=== PATIENT | male | born 1945 | race Caucasian/White ===

== ENCOUNTER 2023-03-03 10:38 | Outpatient (CLI) | payer MEDICARE, SELFPAY | END 2023-03-03 10:39 | disposition home or self-care (01) | PROVIDERS: PCP Family Medicine; Visit Provider Family Medicine | DX: I10 Essential (primary) hypertension (principal); E78.5 Hyperlipidemia, unspecified | CPT/HCPCS: 80048; 80061 ==

== ENCOUNTER 2023-06-14 10:09 | Emergency (ER) | payer MEDICARE, SELFPAY ==
[2023-06-14 10:16] VITALS: BP 156/87; PULSE 55; RESP 16; TEMP 35.8; O2SAT 96; BMI 33.5
--- NOTE | 2023-06-14 10:38 | ED_ITS ---
HPI - General Adult General Time Seen by Provider: 10:39 Date Seen: 06/14/23 Chief complaint: Fall/Minor Trauma Stated complaint: fell off a ladder,lower right back pain Time Seen by Provider: 06/14/23 10:18 Related Data Home Medications Medication Instructions Recorded Confirmed aspirin 81 mg tablet,delayed 81 mg PO DAILY 03/03/23 06/14/23 release nitroglycerin 0.4 mg sublingual 0.4 mg sublingual PRN 03/03/23 03/22/23 tablet Previous Rx's Medication Instructions Recorded atorvastatin 80 mg tablet 80 mg PO QHS #90 tabs 03/03/23 clopidogrel 75 mg tablet 75 mg PO DAILY #90 tabs 03/03/23 lisinopril 40 mg tablet 40 mg PO DAILY #90 tabs 03/03/23 metoprolol succinate 25 mg 25 mg PO QDAY #90 tabs 03/03/23 tablet,extended release 24 hr Allergies Allergy/AdvReac Type Severity Reaction Status Date / Time No Known Allergies Allergy Unknown Unknown Verified 06/14/23 10:16 PFSH PFS Surgical History Status post right knee surgery ?Z98.890 - Other specified postprocedural states (ICD-10) Status post excision of lipoma (01/30/14) ?Z98.890 - Other specified postprocedural states (ICD-10) ?Z86.018 - Personal history of other benign neoplasm (ICD-10) Status post coronary artery stent placement ?Z95.5 - Presence of coronary angioplasty implant and graft (ICD-10) Family History Other Diabetes Social History (Updated 03/08/23 @ 10:17 by Viji Goldberg ~ [facility]) Smoking Status: Former smoker What tobacco products do you use: cigarettes Smoking quit date/years: >15 years ago Do you use any of these nicotine containing products: None Second hand tobacco smoke exposure: No How often do you have a drink containing alcohol: never How often do you have six or more drinks on one occasion: Never AUDIT-C Alcohol total score: 0 Non-prescribed substance use: denies use Little interest or pleasure in doing things: nearly every day Feeling down, depressed, or hopeless: not at all service: Yes Exam Narrative: Exam Narrative: Const: Well-nourished, Well-developed, in mild distress Eyes: PERRL, no conjunctival injection, and symmetrical lids ENMT: Atraumatic external nose and ears. Moist mucous membranes. Neck: Symmetric, trachea midline, No thyromegaly. CVS: RRR, No murmurs or gallops. Peripheral pulses 2+ and equal in all extremities RESP: Unlabored respiratory effort. Clear to auscultation bilaterally. GI: Nontender/Nondistended, No rebound or guarding. MSK:Extremities w/o deformity, Normal Active ROM. No tenderness to palpation noted to midline spine or hips. No tenderness to palpation noted to rest the patient has joints. Skin: Warm, Dry. No rashes or lesions. Neuro: Normal Muscle tone, Cranial nerves 2-12 grossly intact, normal bqqt-[id number], normal myeous-rp-[id number], normal gait, normal strength 5/5 upper lower extremities bilaterally, normal sensation upper and lower extremities bilaterally, normal rapid alternating movements. Psych: Awake, Alert, & Oriented x3. Appropriate mood and affect. Const: Vital Signs, click to edit/add: Vital Signs - 24 hr 06/14/23 10:16 06/14/23 12:30 Temperature 96.4 F L 97.1 F L Pulse Rate [Pulse Oximeter] 55 L 65 Respiratory Rate 16 18 Blood Pressure [Ri ght Upper Arm] 156/87 H 151/87 H Pulse Oximetry 96 95 Oxygen Delivery Me thod Room Air Course Vital Signs Vital signs: Initial Vital Signs Temperature 96.4 F L 06/14/23 10:16 Temperature Source Temporal Artery Scan 06/14/23 10:16 Pulse Rate 55 L 06/14/23 10:16 Respiratory Rate 16 06/14/23 10:16 Blood Pressure 156/87 H 06/14/23 10:16 Blood Pressure Mean 110 H 06/14/23 10:16 Blood Pressure Position Sitting 06/14/23 10:16 Pulse Oximetry 96 06/14/23 10:16 Oxygen Delivery Method Room Air 06/14/23 10:16 Vital Signs Temperature 96.4 F L 06/14/23 10:16 Pulse Rate 55 L 06/14/23 10:16 Respiratory Rate 16 06/14/23 10:16 Blood Pressure 156/87 H 06/14/23 10:16 Pulse Oximetry 96 06/14/23 10:16 Oxygen Delivery Method Room Air 06/14/23 10:16 Temperature 97.1 F L 06/14/23 12:30 Pulse Rate 65 06/14/23 12:30 Respiratory Rate 18 06/14/23 12:30 Blood Pressure 151/87 H 06/14/23 12:30 Pulse Oximetry 95 06/14/23 12:30 Oxygen Delivery Method Room Air 06/14/23 10:16 Medical Decision Making MDM Narrative Medical decision making narrative: Patient is a 8-year-old male presenting was working for right hip pain after a fall. He fell about 4 ft from a ladder landing on dirt. This is he has pain with walking was at rest there is no pain to his right hip. Denies weakness, numbness, headache, vision changes. States he is having no neurological symptoms at this time despite that we will order head CT due to his age and the fall. X-ray of the right hip was also ordered. X-ray of her hip shows no acute abnormalities. She has not required any pain medication this time. CT results were called to me by the radiologist Dr. Sancho Chin. He states other appears to be a subarachnoid hemorrhage. This is likely traumatic considering the patient just fell. He has 0 neurological symptoms at this time as far as I can find but considering the concern for subarachnoid hemorrhage he is best to be transferred to a higher level of care that has Neuro surgery. Spoke to Dr. Caban of [place] [facility] accepted him for transfer to their emergency department. Patient is agreeable to this plan. Imaging Data CT head: Radiologist's impression: INDICATION: Fall. TECHNIQUE: CT head without contrast. COMPARISON: None. FINDINGS: CSF spaces: Hyperdensity in the interpeduncular cistern consistent with subarachnoid hemorrhage. Brain parenchyma and extra-axial spaces: The rosenberg-white differentiation is normal. No sign of mass, hemorrhage, or midline shift. No extra-axial fluid collection. Skull base and calvarium: The visualized paranasal sinuses and mastoid air cells demonstrate no acute or significant findings. The visualized orbits are grossly unremarkable. No skull fractures. IMPRESSION: Subarachnoid hemorrhage in the interpeduncular cistern. Subspecialty neurosurgical consultation and follow-up imaging are recommended. Discussed with Dr. Ramirez at 12:05 p.m. on 06/14/2023. Please note that all CT scans at this facility use dose modulation, iterative reconstruction, and/or weight-based dosing when appropriate to reduce radiation dose to as low as reasonably achievable. Dictated by Sancho Chin MD @ 06/14/2023 12:08:03 PM Hip x-ray : Radiologist's impression: Indication: Fall, pain Technique: Pelvis and right hip 3 views Comparison: None Findings: The femoral neck is intact. No fracture. No intrinsic lesion. Mild degenerative changes of both hip joints. The pubic rami are intact. Intact sacrum. Impression: No sign of acute injury. Dictated by Farhan Willett MD @ 06/14/2023 12:21:38 PM Critical Care Time Critical Care Time Critical Care Time: Yes Attestation: The patient required my highest level preparedness to intervene emergently and I personally spent this critical care time directly and personally managing the patient. This critical care time included: Obtaining a history; Examining the patient; Pulse oximetry; Ordering and reviewing of studies; Arranging urgent treatment with development of a management plan; Evaluation of patients response to treatment; Frequent reassessment discussions with other providers. This critical care time was performed to assess and manage the high probability of imminent life-threatening deterioration that could result in multiorgan failure. It was exclusive of separate billable procedures and treating other patients and teaching time. Total Critical Care Time in Minutes: 31 Discharge Plan Discharge Clinical Impression: Subarachnoid hemorrhage Strain of muscle of right hip Qualifiers: Encounter type: initial encounter Qualified Code(s): S76.011A - Strain of muscle, fascia and tendon of right hip, initial encounter Patient Disposition: Xfer Other Discharge Location: [facility] Condition: Stable Prescriptions: No Action aspirin 81 mg tablet,delayed release (DR/EC) 81 mg PO DAILY nitroglycerin 0.4 mg tablet, sublingual 0.4 mg sublingual PRN atorvastatin 80 mg tablet 80 mg PO QHS Qty: 90 3RF clopidogrel 75 mg tablet 75 mg PO DAILY Qty: 90 3RF lisinopril 40 mg tablet 40 mg PO DAILY Qty: 90 3RF metoprolol succinate 25 mg tablet extended release 24 hr 25 mg PO QDAY Qty: 90 3RF Stand Alone Forms: [facility], [facility] Info Instructions
--- NOTE | 2023-06-14 10:46 | CRLHL7_ITS ---
For Patients: As a result of the Cures Act, medical imaging exams and procedure reports are released immediately into your electronic medical record. You may view this report before your referring provider. If you have questions, please contact your health care provider. Indication: Fall, pain Technique: Pelvis and right hip 3 views Comparison: None Findings: The femoral neck is intact. No fracture. No intrinsic lesion. Mild degenerative changes of both hip joints. The pubic rami are intact. Intact sacrum. Impression: No sign of acute injury. Dictated by Farhan Willett MD @ 06/14/2023 12:21:38 PM (Electronically Signed)
--- NOTE | 2023-06-14 10:46 | CT_ITS ---
Final Report Patient: DIAZ POTTER Facility:?[facility] Patient ID:?[id number] Site Patient ID:?[id number]. Site :?[id number] Study:?CT Head w/o-06/14/2023 10:58:39 AM Ordering Physician:Rupesh Garcia Final Report: INDICATION: Fall. TECHNIQUE: CT head without contrast. COMPARISON: None. FINDINGS: CSF spaces: Hyperdensity in the interpeduncular cistern consistent with subarachnoid hemorrhage. Brain parenchyma and extra-axial spaces: The rosenberg-white differentiation is normal. No sign of mass, hemorrhage, or midline shift. No extra-axial fluid collection. Skull base and calvarium: The visualized paranasal sinuses and mastoid air cells demonstrate no acute or significant findings. The visualized orbits are grossly unremarkable. No skull fractures. IMPRESSION: Subarachnoid hemorrhage in the interpeduncular cistern. Subspecialty neurosurgical consultation and follow-up imaging are recommended. Discussed with Dr. Ramirez at 12:05 p.m. on 06/14/2023. Please note that all CT scans at this facility use dose modulation, iterative reconstruction, and/or weight-based dosing when appropriate to reduce radiation dose to as low as reasonably achievable. Dictated by Sancho Chin MD @ 06/14/2023 12:08:03 PM (Electronic Signature)
[2023-06-14 12:30] VITALS: BP 151/87; PULSE 65; RESP 18; TEMP 36.2; O2SAT 95
--- NOTE | 2023-06-14 12:35 | ED.NURSE ---
Report to [facility] for xfer to [facility].
--- NOTE | 2023-06-14 12:46 | ED.NURSE ---
Report to [facility] ED RN. Understands patient is en route to [facility] at this time.
== END 2023-06-14 12:37 | disposition other institution (70) ==
PROVIDERS: Emergency Provider Student in an Organized Health Care Education/Training Program; PCP Family Medicine
DX: S06.6XAA Traumatic subarachnoid hemorrhage with loss of consciousness status unknown, initial encounter (principal); W11.XXXA Fall on and from ladder, initial encounter
CPT/HCPCS: 70450; 73502; 99284; 99291

== ENCOUNTER 2023-06-14 12:30 | Outpatient (CLI) | payer MEDICARE, SELFPAY | END 2023-06-14 12:31 | disposition home or self-care (01) | LOC: AMB 06-26 04:32 | PROVIDERS: PCP Family Medicine; Visit Provider Student in an Organized Health Care Education/Training Program | DX: I60.9 Nontraumatic subarachnoid hemorrhage, unspecified (principal) | CPT/HCPCS: A0425; A0426 ==

== ENCOUNTER 2023-07-14 12:58 | Outpatient (CLI) | payer MEDICARE, SELFPAY ==
--- NOTE | 2023-07-14 13:30 | CRLHL7_ITS ---
For Patients: As a result of the Century Cures Act, medical imaging exams and procedure reports are released immediately into your electronic medical record. You may view this report before your referring provider. If you have questions, please contact your health care provider. CT ANGIOGRAM HEAD DATE: 07/14/2023 CLINICAL HISTORY: Patient with subarachnoid hemorrhage. TECHNIQUE: Standard helical CT image acquisition through the intracranial circulation following intravenous administration of contrast material with bolus tracking. 2D and 3D MIP images for post-processing were performed and interpreted on an independent workstation and 3D images were permanently archived. COMPARISON: CT 06/14/2023 FINDINGS: There is no proximal intracranial large vessel occlusion. There is no intracranial aneurysm. The right internal carotid artery is normal. The right middle cerebral artery and its branches are normal. The right anterior cerebral artery and its branches are normal. The left internal carotid artery is normal. The left middle cerebral artery and its branches are normal. The left anterior cerebral artery and its branches are normal. The anterior communicating artery is well visualized and appears normal. The right vertebral artery and PICA are normal. The left vertebral artery and PICA are normal. The left vertebral artery is dominant. The basilar artery is patent and appears normal. The right posterior cerebral artery is normal. The left posterior cerebral artery is normal. IMPRESSION: No intracranial aneurysm or other neurovascular abnormality to explain the subarachnoid hemorrhage. Please note that all CT scans at this facility use dose modulation, iterative reconstruction, and/or weight-based dosing when appropriate to reduce radiation dose to as low as reasonably achievable. Dictated by: Mars Villanueva MD @ 07/14/2023 14:47:37 (Electronically Signed)
[2023-07-14 13:34] LABS: Creatinine* 1.2 mg/dL (0.5-1.5); Estimated Glomerular Filt Rate 62 ml/min
--- NOTE | 2023-07-14 14:30 | CRLHL7_ITS ---
For Patients: As a result of the Century Cures Act, medical imaging exams and procedure reports are released immediately into your electronic medical record. You may view this report before your referring provider. If you have questions, please contact your health care provider. INDICATION: Hemangioma. COMPARISON: CT 06/14/2023. TECHNIQUE: Multiplanar T1, T2, FLAIR and diffusion-weighted imaging.. Post gadolinium T1 weighted sequences. FINDINGS: Mild generalized volume loss. Scattered patchy T2/FLAIR signal hyperintense within the white matter consistent with chronic deep white matter small ischemic changes. There is a subtle focal area of heterogeneous T2 hyperintensity and enhancement of the right cerebral peduncle measuring approximately 7 x 6 mm (series 13, image 95; series 5, image 15) with corresponding susceptibility artifact (series 8, image 22). Finds consistent with a cavernoma. This correlates with the area of hyperdensity as seen on CT. No acute intracranial hemorrhage. No abnormal ventricular dilatation. Intracranial vascular flow voids are preserved. No mass effect or midline shift. No restricted diffusion to suggest acute ischemia. No abnormal enhancement or enhancing lesions elsewhere. Bilateral orbits are unremarkable. Normal appearing sella. Visualized paranasal sinuses and mastoid air cells are unremarkable. IMPRESSION: 1. Subtle focal area of heterogeneous T2 hyperintensity enhancement of the right cerebral peduncle will correspond to similar artifact. Findings most consistent with a cavernoma. This correlates with area of hyperdensity is seen on previous CT. 2. No intracranial hemorrhage elsewhere. No acute intracranial abnormality 3. Mild generalized volume loss. Mild chronic deep white matter small vessel ischemic changes. Dictated by Colin Jerez MD @ 07/15/2023 4:35:41 PM (Electronically Signed)
== END 2023-07-14 12:59 | disposition home or self-care (01) ==
LOC: CT 13:00
PROVIDERS: PCP Family Medicine; Visit Provider Student in an Organized Health Care Education/Training Program
DX: D18.00 Hemangioma unspecified site (principal); I60.9 Nontraumatic subarachnoid hemorrhage, unspecified
CPT/HCPCS: 36415; 70496; 70553; 82565; A9575; Q9967

== ENCOUNTER 2023-08-24 06:47 | Day surgery (SDC) | payer MEDICARE, SELFPAY ==
[2023-08-24] VITALS (10 sets, daily range): BP systolic 143–167; BP diastolic 76–89; PULSE 54–62; RESP 16; TEMP 36.2–36.6; O2SAT 94–98; BMI 33.4
[2023-08-24] MEDS: BUPIVACAINE 0.5% 30 ML 5 ML INJECTION (07:40)
[2023-08-24] MEDS: lidocaine HCL 2 % MULTIDOSE 20 ML VIAL 7 ML INJECTION (07:40)
--- NOTE | 2023-08-24 07:47 | SUR.OPER ---
PATIENT QUESTIONS ANSWERED SATISFACTORILY PREOPERATIVELY.? PATIENT BROUGHT TO OR #3 PER WHEELCHAIR.? Patient positioned supine on OR #3 bed.? The perioperative?team supported right arm bilaterally on arm boards. Final approval of positioning by surgeon
--- NOTE | 2023-08-24 07:59 | PM.ORPRC ---
Procedure Note Date of procedure: 08/24/23 Procedure: Preop diagnosis: Right upper extremity carpal tunnel syndrome Postop diagnosis: Right upper extremity carpal tunnel syndrome Procedure: Right upper extremity carpal tunnel release Anesthesia: Local Surgeon: Ben Torres MD health education assistant: UTE Guajardo EBL: 5 mL Complications: None Specimens: None Drains: None Indications: The patient has a history of right upper extremity carpal tunnel syndrome symptoms. Despite appropriate nonoperative management consisting of nighttime bracing and occupational therapy they continue to have symptoms. Operative intervention was recommended. The risks, benefits alternatives and expected outcomes were discussed in detail. These included but were not limited to: Infection, bleeding, injury to blood vessel or nerve, venous thromboembolism. All questions were answered to their satisfaction. The patient was placed supine on the operating room table. Local anesthesia was established with 0.5% Marcaine without epinephrine and 2% lidocaine without epinephrine. The hand was prepped and draped in usual sterile fashion. The limb was elevated the forearm pneumatic tourniquet was inflated to 250 mm of mercury. A longitudinal incision was made centered over the radial border of the ring finger at the base of the palm. Subcutaneous dissection was sharply taken through the palmar fascia and the palmaris brevis to the transverse carpal ligament. The ligament was divided in line with the incision. Proximal and distal dissection was carried with tenotomy and Metzenbaum scissors for a wide decompression of the carpal tunnel. The tourniquet was released , bleeding was controlled with direct pressure. The wound was closed with a 3-0 nylon. A bulky dry dressing was applied, sponge and needle counts were correct x 2. The patient tolerated the procedure well, there were no apparent complications. They were sent to same day surgery in satisfactory condition. Plan: Use of the hand as tolerates. Discontinue the intraoperative dressing on postoperative day 3 and may get the wound wet as tolerates. Follow up in the office in 2 weeks for a wound check and suture removal.
== END 2023-08-24 08:36 | disposition home or self-care (01) ==
PROVIDERS: PCP Family Medicine; Visit Provider Orthopaedic Surgery
PROC: (CPT 64721; principal; 2023-08-24 07:45)
DX: G56.01 Carpal tunnel syndrome, right upper limb (principal)
CPT/HCPCS: 64721; J0665

== ENCOUNTER 2023-09-06 09:03 | Outpatient (CLI) | payer MEDICARE, SELFPAY | END 2023-09-06 09:04 | disposition home or self-care (01) | PROVIDERS: PCP Family Medicine; Visit Provider Orthopaedic Surgery | DX: B99.9 Unspecified infectious disease (principal); T81.49XA Infection following a procedure, other surgical site, initial encounter; Z98.890 Other specified postprocedural states | CPT/HCPCS: 87070; 87075; 87186; 87205 ==

== ENCOUNTER 2024-04-12 08:37 | Outpatient (CLI) | payer MEDICARE, SELFPAY | END 2024-04-12 08:38 | disposition home or self-care (01) | PROVIDERS: PCP Family Medicine; Visit Provider Family Medicine | DX: E78.00 Pure hypercholesterolemia, unspecified (principal); I10 Essential (primary) hypertension | CPT/HCPCS: 80048; 80061 ==

== ENCOUNTER 2025-04-15 11:52 | Outpatient (CLI) | payer MEDICARE, BC, SELFPAY | END 2025-04-15 11:53 | disposition home or self-care (01) | PROVIDERS: PCP Family Medicine; Visit Provider Family Medicine | DX: I10 Essential (primary) hypertension (principal); E78.5 Hyperlipidemia, unspecified; R53.83 Other fatigue | CPT/HCPCS: 80048; 80061; 84443 ==